=== PATIENT | female | born 2000 | race Caucasian/White ===

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

== ENCOUNTER → 2019-03-20 | Outpatient (CLI) | payer BC, OTHER ==
[~2019-03-20] MED LIST: LEVSOD50 PO; METF500 PO; NAPR550 PO; PROG100 PO; Prozac20 MG PO
== END | disposition home or self-care (01) ==
LOC: LAB 13:41 → LAB SHORT 13:41
DX: N90.7 Vulvar cyst (principal); N89.8 Other specified noninflammatory disorders of vagina
CPT/HCPCS: 87070; 87205

== ENCOUNTER 2019-08-03 17:08 | Observation (INO) | payer BC, OTHER ==
[~2019-08-03] VITALS: Ht 182.9 cm; Wt 122.9 kg
[2019-08-03] MEDS ORDERED: PRAV20 PO (17:21)
[2019-08-03] MEDS ORDERED: MAGNESIUM OXID500 MG PO (17:21)
[2019-08-03] MEDS ORDERED: GLIP5 PO (17:21)
[2019-08-03] MEDS ORDERED: POTA20PAC (17:21)
[2019-08-03 17:42] LABS: BASOPHILS ABSOLUTE AUTO 0.06 K/mm3 (0.00-0.23); BASOPHILS PERCENT AUTO 1 % (0-2); EOSINOPHILS ABSOLUTE AUTO 0.19 K/mm3 (0.00-0.68); EOSINOPHILS PERCENT AUTO 3 % (0-6); Hematocrit 42.5 % (33.0-51.0); Hemoglobin 13.5 g/dL (11.5-16.0); IMMATURE GRAN ABSOLUTE AUTO 0.03 K/mm3 (0.00-0.10); IMMATURE GRAN PERCENT AUTO 0 % (0-1); LYMPHOCYTES PERCENT AUTO 32 % (21-46); MONOCYTES ABSOLUTE AUTO 0.55 K/mm3 (0.16-1.47); MONOCYTES PERCENT AUTO 7 % (4-13); Mean Corpuscular HGB 27.6 pg (26.0-34.0); Mean Corpuscular HGB Conc 31.8 g/dL (31.5-36.5); Mean Corpuscular Volume 87 fL (80-100); Mean Platelet Volume 11.3 fL (9.1-12.4); NEUTROPHILS ABSOLUTE AUTO 4.24 K/mm3 (1.96-9.15); NEUTROPHILS PERCENT AUTO 57 % (41-73); Platelet Count 191 K/mm3 (150-400); RDW Coefficient Variation 14.4 % (11.7-14.2); RDW Standard Deviation 45.4 fL (35.1-46.3); Red Blood Cell Count 4.89 M/mm3 (3.80-5.20); White Blood Cell Count 7.47 K/mm3 (4.00-11.30)
[2019-08-03] MEDS ORDERED: PROZAC40 MG PO (17:52)
[2019-08-03] MEDS ORDERED: Potassium Chlo20 ME1 PO (17:52)
[2019-08-03] MEDS ORDERED: Prometrium200 MG PO (17:53)
[2019-08-03 17:59] LABS: Alanine Aminotransfer (ALT/SGP 38 U/L (12-78); Anion Gap 4 mmol/L (6-16); Blood Urea Nitrogen 9 mg/dL (8-24); CO2, Blood 26 mmol/L (21-32); Calcium, Blood 9.1 mg/dL (8.5-10.1); Chloride, Blood 110 mmol/L (98-108); Glucose, Blood 77 mg/dL (70-99); Potassium, Blood 3.9 mmol/L (3.5-5.5); Sodium, Blood 140 mmol/L (136-145)
[2019-08-03 18:02] LABS: Albumin/Globulin Ratio 1.2 (0.8-1.8); Alk Phos 65 U/L (50-136); Aspartate Aminotrans (AST/SGOT 22 U/L (12-37); Bilirubin, Total 1.4 mg/dL (0.1-1.0); Bun/Creatinine Ratio 9.5 (12.0-20.0); Creatinine, Blood 0.95 mg/dL (0.40-1.00); Globulin, Blood 3.3 g/dL (2.2-4.0); Glomerular Filtration Rate >60 (60-); Total Protein, Blood 7.3 g/dL (6.4-8.2); Troponin I <0.015 ng/mL (0.000-0.040)
--- NOTE | 2019-08-04 05:13 | NUR ---
SHIFT SUMMARY PT SLEEPINN IN ROOM COMFORTABLY AT THIS TIME. NO ACUTE CHANGES IN STATUS SINCE ARRIVAL. PT HAS SLEPT WELL SINCE ARRIVAL. DENIEDS ANY CP OR SOB. RESP EVEN UNLABORED ONR A W/ SATS >92%. DENIES OTHER NEEDS. PT IS INDEPENDENT IN ROOM. CALL LIGHT W/IN REACH. WILL GIVE BEDSIDE REPORT TO ONCOMING RN.
[2019-08-04 06:20] LABS: Anion Gap 5 mmol/L (6-16); Blood Urea Nitrogen 9 mg/dL (8-24); Bun/Creatinine Ratio 9.8 (12.0-20.0); CO2, Blood 28 mmol/L (21-32); Calcium, Blood 9.1 mg/dL (8.5-10.1); Chloride, Blood 106 mmol/L (98-108); Creatinine, Blood 0.92 mg/dL (0.40-1.00); Glomerular Filtration Rate >60 (60-); Glucose, Blood 85 mg/dL (70-99); Potassium, Blood 3.6 mmol/L (3.5-5.5); Sodium, Blood 139 mmol/L (136-145); Troponin I <0.015 ng/mL (0.000-0.040)
--- NOTE | 2019-08-04 09:18 | NUR ---
PT SUBQICD SCANNED PER DR POMPA V/O - 2 SHOCKS APPEARING APPROPRIATE. RESULTS GIVEN TO DR POMPA.
--- NOTE | 2019-08-04 10:05 | NUR ---
ECHOCARDIOGRAM COMPLETED
--- NOTE | 2019-08-04 19:31 | NUR ---
SHIFT SUMMARY PT A&Ox4. CALM AND COOPERATIVE WITH CARE. PT RESTING IN BED DURING SHIFT. UP IN ROOM IND. PT DENIES PAIN, CHEST PAIN/PRESSURE, SOB, NAUSEA, AND LIGHTHEADED/DIZZINESS. TELE SR/SB T/O SHIFT, NO EVENTS REPORTED; PT DENIES FEELING SHOCK DURING SHIFT. PT HAD AICD INTEROGATED THIS AFTERNOON. VSS. NO OTHER ACUTE CHANGES NOTED DURING SHIFT. REPORT GIVEN TO ONCOMING SHIFT. DR POMPA AT BEDSIDE THIS EVENING DISCUSSING PLAN OF CARE WITH PATIENT AND MOTHER.
--- NOTE | 2019-08-05 04:44 | NUR ---
SHIFT SUMMARY PT A&O X4; COMPLIANT W/ CARE; VSS; DENIES CHEST PAIN; DENIES SOB; MOTHER AT BEDSIDE AT START OF SHIFT; DR. POMPA AT BEDSIDE START OF SHIFT WELL; O2 SATS >94 ON RA; INDEPENDENT IN ROOM; SLEPT SEVERAL HOURS IN BETWEEN INTERVENTIONS; DENIES NEEDS AT THIS TIME; WILL MONITOR CLOSELY UNTIL HAND OFF TO DAY SHIFT RN.
--- NOTE | 2019-08-05 06:28 | NUR ---
UPDATE IN TO SEE PT THIS AM; REQUEST FOR INTEROGATION OF DEVICE BEFORE PT IS DISCHARGED; [facility] CALLED @ [phone]
--- NOTE | 2019-08-05 10:03 | NUR ---
DISCHARGE SUMMARY PT A&Ox4. CALM AND COOPERATIVE WITH CARE PT RESTING IN BED DURING SHIFT. UP IND IN ROOM. PT DENIES PAIN, CHEST PAIN/PRESSURE, SOB, NAUSEA, AND LIGHTHEADED/DIZZINESS. TELE REPORTS NOT EVENTS. PT SPO2 >90% ON RA. VSS. NO OTHER ACUTE CHANGES NOTED. PT AND MOTHER EDUCATED ON DISCHARGE INSTRUCTIONS, MEDICATIONS AND FOLLOW UP APPOINTMENTS. PT DIRECTED TO CALL [facility] ON SATURDAY TO SCHEDULE FOLLOW UP APPOINTMENT IF SHE HAS NOT HEARD FROM THEM. IF ANY PROBLEM OR CONCERNS TO CONTACT DR POMPA OFFICE AND IF AICD DISCHARGES AGAIN TO FOLLOW UP WITH ED. DR POMPA ADVISED PT NO DRIVING; EDUCATED PT AND MOTHER THIS AM, NO OPERATING MOTORIZED VEHICLES. PT LEFT ROOM ON FOOT AT 0940; PT STABLE UPON DISCHARGE.
== END 2019-08-05 09:40 | disposition home or self-care (01) ==
LOC: ER 17:08 → PCU 17:09
PROVIDERS: Emergency Medicine; ADMIT Family Medicine
DX: Z45.02 Encounter for adjustment and management of automatic implantable cardiac defibrillator (principal); F32.9 Major depressive disorder, single episode, unspecified; E66.01 Morbid (severe) obesity due to excess calories; E11.9 Type 2 diabetes mellitus without complications; E87.6 Hypokalemia; E03.9 Hypothyroidism, unspecified; Q22.5 Ebstein's anomaly; Z79.899 Other long term (current) drug therapy; Z88.8 Allergy status to other drugs, medicaments and biological substances; Z79.84 Long term (current) use of oral hypoglycemic drugs; Z68.42 Body mass index [BMI] 45.0-49.9, adult
CPT/HCPCS: 36415; 71045; 80048; 80053; 83735; 83880; 84484; 85025; 93005; 93010; 93261; 93306; 99285-25; J1650

== ENCOUNTER → 2019-09-14 | Outpatient (CLI) | payer BC, OTHER ==
[~2019-09-14] MED LIST changes: +GLIP5 PO; +MAGNESIUM OXID500 MG PO; +POTA20PAC; +PRAV20 PO; +PROZAC40 MG PO; +Potassium Chlo20 ME1 PO; +Prometrium200 MG PO
== END | disposition home or self-care (01) ==
LOC: LAB EV 08:36
PROVIDERS: Student in an Organized Health Care Education/Training Program
DX: R22.2 Localized swelling, mass and lump, trunk (principal); R73.03 Prediabetes; N92.6 Irregular menstruation, unspecified
CPT/HCPCS: 82530

== ENCOUNTER → 2019-10-02 | Outpatient (CLI) | payer BC | END | disposition home or self-care (01) | LOC: LAB EV 09:46 → LAB FUT 09-08 11:45 → EDSTATUS 09-08 11:45 | PROVIDERS: Student in an Organized Health Care Education/Training Program | DX: N92.6 Irregular menstruation, unspecified (principal); R22.2 Localized swelling, mass and lump, trunk; R73.03 Prediabetes; E66.01 Morbid (severe) obesity due to excess calories; Z68.41 Body mass index [BMI] 40.0-44.9, adult | CPT/HCPCS: 81050 ==